=== PATIENT | female | born 1950 | race Native Hawaiian/Other Pacific Islander ===

== ENCOUNTER 2018-10-09 12:30 | Emergency (ER) | payer OTHER ==
[~2018-10-09] VITALS: Ht 172.7 cm; Wt 76.2 kg
[2018-10-09 12:42] VITALS: TEMP 97.3
[2018-10-09 14:55] VITALS: BP 120/74
== END 2018-10-09 14:55 | disposition home or self-care (01) ==
LOC: ED 12:30
DX: S86.811A Strain of other muscle(s) and tendon(s) at lower leg level, right leg, initial encounter (principal); W18.39XA Other fall on same level, initial encounter; Y92.89 Other specified places as the place of occurrence of the external cause
CPT/HCPCS: 99282